=== PATIENT | female | born 1950 | race Caucasian/White ===

== ENCOUNTER 2022-07-07 12:10 | Outpatient (CLI) | payer MEDICARE | END 2022-07-07 12:11 | disposition home or self-care (01) | LOC: CSHRAD 12:10 | PROVIDERS: ATTEND Chiropractor | DX: M54.50 Low back pain, unspecified (principal); G89.29 Other chronic pain; M47.816 Spondylosis without myelopathy or radiculopathy, lumbar region | CPT/HCPCS: 72100 ==